=== PATIENT | female | born 1975 | race Two or more races ===

== ENCOUNTER 2024-04-20 17:20 | Emergency (ER) | payer MEDICAID ==
[~2024-04-20] VITALS: Ht 157.5 cm; Wt 92.8 kg
[2024-04-20 17:56] LABS: Urine Bacteria None Seen /hpf (None Seen)
[2024-04-20 18:15] LABS: Urine Blood 1+ /uL (Negative); Urine Clarity Turbid (Clear); Urine Color Light-Yellow (Yellow); Urine Protein, UAD Negative (Negative); Urine Urobilinogen Normal (Negative); Urine WBC 4 /hpf (0 - 5); Urine pH 7.5 (5.0-9.0)
[2024-04-20 18:43] LABS: Basophils # (auto) 0.1 10 ^3/uL (0-0.2); Basophils % (auto) 0.6 % (0.0-2.0); Eosinophils # (auto) 0.1 10 ^3/uL (0-0.8); Hematocrit 39.5 % (36.0-46.0); Hemoglobin 13.2 g/dL (12.2-16.2); Lymphocytes # (auto) 1.6 10 ^3/uL (0.4-5.4); Lymphocytes % (auto) 14.9 % (10.0-50.0); Mean Corpuscular Hemoglobin 26.9 pg (28.0-32.0); Mean Corpuscular Hgb Conc. 33.4 g/dL (32.0-36.0); Mean Corpuscular Volume 80.8 fL (80.0-100.0); Monocytes # (auto) 0.5 10 ^3/uL (0-1.3); Monocytes % (auto) 4.7 % (0.0-12.0); Neutrophils # (auto) 8.5 10 ^3/uL (1.6-8.6); Neutrophils % (auto) 78.8 % (37.0-80.0); Platelet Count (auto) 390 10^3/uL (140-450); Red Blood Cells 4.89 10^6/uL (4.0-5.20); Red Cell Distribution Width 15.8 % (11.8-14.3); White Blood Cell 10.8 10^3/uL (4.4-10.8)
[2024-04-20 18:55] LABS: Anion Gap 5 (5-15); Carbon Dioxide 26 mmol/L (20-31); Chloride 107 mmol/L (98-107); Potassium 3.8 mmol/L (3.5-5.1); Sodium 138 mmol/L (136-145)
[2024-04-20 18:56] LABS: Calcium 9.9 mg/dL (8.7-10.4)
[2024-04-20 19:01] LABS: BUN/Creatinine Ratio 16.9 (10.0-20.0); Blood Urea Nitrogen 10 mg/dL (9-23); Glucose 109 mg/dL (74-106)
[2024-04-20 21:10] VITALS: BP 136/75; PULSE 71; RESP 18; TEMP 97.9; O2SAT 97
[2024-04-20] MEDS: ONDANSETRON HCL 4 MG/2 ML VIAL IV ONE (21:26)
[2024-04-20] MEDS: SODIUM CHLORIDE 0.9% 1,000 ML IV ONE (21:26)
[2024-04-20] MEDS: KETOROLAC TROMETH 30 MG/ML 1ML VIAL IV ONE (21:26)
[2024-04-20] MEDS: MECLIZINE HCL 25 MG TAB PO ONE (21:26)
[2024-04-20] MEDS ORDERED: MECL-90 PO (21:53)
== END 2024-04-20 22:00 | disposition home or self-care (01) ==
LOC: ER 17:20
DX: R51.9 Headache, unspecified (principal); R10.2 Pelvic and perineal pain; H81.392 Other peripheral vertigo, left ear; Z90.49 Acquired absence of other specified parts of digestive tract; W06.XXXA Fall from bed, initial encounter; Y93.89 Activity, other specified; Y92.89 Other specified places as the place of occurrence of the external cause; Y99.8 Other external cause status
CPT/HCPCS: 36415; 70450; 80048; 81001; 84702; 85025; 96361; 96374; 96375; 99285; J1885; J2405; J7030; J8597